=== PATIENT | male | born 1995 | race Two or more races ===

== ENCOUNTER 2025-01-21 08:36 | Emergency (ER) | payer OTHER ==
[~2025-01-21] VITALS: Ht 165.1 cm; Wt 59.0 kg
[2025-01-21] MEDS ORDERED: 0.9 % SODIUM CHLORIDE 1,000 ML IV STA (08:59)
[2025-01-21] MEDS ORDERED: ONDANSETRON HCL 2 MG/ML VIAL IV STA (09:03)
[2025-01-21] MEDS ORDERED: KETOROLAC TROMETHAMINE 30 MG VIAL ONE (09:03)
[2025-01-21] MEDS ORDERED: ONDANSETRON HCL 2 MG/ML VIAL ONE (09:03)
[2025-01-21] MEDS ORDERED: KETOROLAC TROMETHAMINE 30 MG VIAL IV ONE (09:15)
[2025-01-21 09:43] LABS: BASO % 1.3 % (0.1-1.2); EOS # 0.10 (0.04-0.54); EOS % 1.8 % (0.7-7.0); LYMPH # 2.32 (1.18-3.74); LYMPH % 42.2 % (19.3-53.1); MEAN PLATELET VOLUME 9.00 fl (9.4-12.4); MONO # 0.30 (0.24-0.82); MONO % 5.5 % (4.7-12.5); NEUT # 2.69 (1.56-6.13); NEUT % 48.8 % (34.0-71.1); RED CELL DISTRIBUTION WIDTH 11.5 % (11.6-14.4)
[2025-01-21 09:48] LABS: ERYTHROCYTE SEDIMENTATION RATE 5 mm/hr (0-15)
[2025-01-21 10:14] LABS: INR 0.99
[2025-01-21 10:41] LABS: ALT/SGPT 40 U/L (12-78); AST/SGOT 21 U/L (15-37); BILIRUBIN TOTAL 0.62 mg/dL (0.3-1.2); BUN CREA RATIO 17 (7.0-25.0); CREATININE SERUM 1.10 mg/dL (0.70-1.30); GFR 78.60; GLOBULINA 3.6 G/DL (2.4-3.5); GLUCOSE FASTING 117 mg/dL (65-100); OSMOLALITY SERUM 281 MOSM/KG (275-295)
[2025-01-21] MEDS ORDERED: CEFTRIAXONE SODIUM 1,000 MG VIAL IM STA (11:53)
[2025-01-21] MEDS ORDERED: levoFLOXacin IN DEXTROSE 5 % 5 MG/ML PIGGYBAG IV STA (11:53)
[2025-01-21 12:07] LABS: URINE APPEARANCE Clear; URINE BILIRRUBIN Negative (NEGATIVE); URINE COLOR Yellow; URINE GLUCOSE Negative (NEGATIVE); URINE KETONE 15 (NEGATIVE); URINE LEUKOCYTE Negative; URINE NITRATE Negative; URINE PROTEIN Negative (NEGATIVE); URINE UROBILINOGEN 1.0 E.U./dl
[2025-01-21 12:13] LABS: URINE BACTERIA 6.8 uL (0.0-1933); URINE EPITHELIAL CELLS 1.5 uL (0.0-38.8); URINE RBC 15.0 uL (0.0-20.8); URINE WBC 5.6 uL (0.0-23.2)
[2025-01-21] MEDS ORDERED: CEFTRIAXONE SODIUM 1,000 MG VIAL ONE (12:15)
[2025-01-21 12:18] LABS: URINE BLOOD TRACE; URINE CAST 0.00 uL (0.0-1.40)
[2025-01-21] MEDS ORDERED: LEVOFLOXACIN750 MG PO (13:02)
[2025-01-21] MEDS ORDERED: IBU600 MG PO (13:02)
== END 2025-01-21 13:48 | disposition home or self-care (01) ==
LOC: ER 08:37
PROVIDERS: Physician Assistant Medical
DX: N45.1 Epididymitis (principal); N43.2 Other hydrocele; N50.811 Right testicular pain